=== PATIENT | male | born 1980 | race Caucasian/White ===

== ENCOUNTER 2020-01-01 12:48 | Emergency (ER) | payer OTHER ==
[~2020-01-01] VITALS: Ht 198.1 cm; Wt 83.9 kg
[~2020-01-01 12:48] MED LIST: BACTRIM DS 8001 TA1 PO; FLEXERIL10 MG PO; HYDROCODONE BIT1 T11 PO; KEFLEX500 MG PO; MOTRIN800 MG PO; NKHM; PREDNICOT20 MG PO; TRAMADOL HCL50 MG PO
[2020-01-01] MEDS ORDERED: NAPROSYN500 MG PO (14:25)
[2020-01-01] MEDS ORDERED: METHOCARBAMOL500 M1 PO (14:25)
[2020-01-01] MEDS ORDERED: MEDROL DOSEPAK4 MG PO (14:25)
== END 2020-01-01 14:31 | disposition home or self-care (01) ==
LOC: ED 12:48
DX: M54.42 Lumbago with sciatica, left side (principal); Z88.0 Allergy status to penicillin; Z79.899 Other long term (current) drug therapy

== ENCOUNTER 2020-08-17 12:07 | Emergency (ER) | payer SELFPAY ==
[~2020-08-17] VITALS: Ht 198.1 cm; Wt 83.9 kg
[~2020-08-17 12:07] MED LIST changes: +MEDROL DOSEPAK4 MG PO; +METHOCARBAMOL500 M1 PO; +NAPROSYN500 MG PO
== END 2020-08-17 12:53 | disposition home or self-care (01) ==
LOC: ED 12:07
DX: Z00.00 Encounter for general adult medical examination without abnormal findings (principal); Z88.0 Allergy status to penicillin; Z79.899 Other long term (current) drug therapy

== ENCOUNTER 2021-02-15 10:39 | Emergency (ER) | payer SELFPAY ==
[~2021-02-15] VITALS: Wt 83.9 kg
[2021-02-15] MEDS ORDERED: PREDNISONE50 MG PO (11:59)
[2021-02-15] MEDS ORDERED: CYCLOBENZAPRINE10 MG PO (11:59)
== END 2021-02-15 12:01 | disposition home or self-care (01) ==
LOC: ED 10:39
DX: M54.6 Pain in thoracic spine (principal); M62.838 Other muscle spasm; Z88.0 Allergy status to penicillin; Z79.899 Other long term (current) drug therapy

== ENCOUNTER 2025-01-25 22:02 | Emergency (ER) | payer SELFPAY ==
[~2025-01-25] VITALS: Ht 198.1 cm; Wt 86.2 kg
[~2025-01-25 22:02] MED LIST changes: +CYCLOBENZAPRINE10 MG PO; +PREDNISONE50 MG PO
[2025-01-25] MEDS ORDERED: Acetaminophen/Hydrocodone 5 MG/325 MG TABLET PO ONE (22:15)
[2025-01-25] MEDS ORDERED: Ondansetron Hydrochloride 4 MG TAB SL ONE (22:15)
[2025-01-25] MEDS ORDERED: CLINDAMYCIN HC300 MG PO (22:15)
[2025-01-25] MEDS ORDERED: CLINDAMYCIN HCL 300 MG CAPSULE PO ONE (22:15)
== END 2025-01-25 22:17 | disposition home or self-care (01) ==
LOC: ED 22:02
DX: K02.9 Dental caries, unspecified (principal); Z88.0 Allergy status to penicillin; Z79.899 Other long term (current) drug therapy

== ENCOUNTER 2025-06-18 17:27 | Emergency (ER) | payer SELFPAY ==
[~2025-06-18] VITALS: Ht 198.1 cm; Wt 83.9 kg
[~2025-06-18 17:27] MED LIST changes: +CLINDAMYCIN HC300 MG PO
[2025-06-18] MEDS ORDERED: Acetaminophen/Oxycodone 5 MG/325 MG TABLET PO ONE (17:55)
[2025-06-18] MEDS ORDERED: CLINDAMYCIN HCL 300 MG CAPSULE PO ONE (17:55)
[2025-06-18] MEDS ORDERED: CLINDAMYCIN HC300 MG PO (17:56)
[2025-06-18] MEDS ORDERED: NAPROSYN500 MG PO (17:56)
== END 2025-06-18 18:14 | disposition home or self-care (01) ==
LOC: ED 17:27
DX: K02.9 Dental caries, unspecified (principal); R59.0 Localized enlarged lymph nodes; R10.9 Unspecified abdominal pain; Z88.0 Allergy status to penicillin